=== PATIENT | male | born 1955 | race Caucasian/White ===

== ENCOUNTER 2020-06-05 13:33 | Inpatient (IN) | payer OTHER ==
[~2020-06-05] VITALS: Ht 185.4 cm; Wt 74.8 kg
[2020-06-05] MEDS ORDERED: MAGNESIUM HYDROXIDE 30 ML UDC PO PRN (20:00)
[2020-06-05] MEDS ORDERED: TEMAZEPAM 7.5 MG CAPSULE PO PRN (20:00)
[2020-06-05] MEDS ORDERED: MAG HYDROX/AL HYDROX/SIMETH 30 ML UDC PO PRN (20:00)
[2020-06-05] MEDS ORDERED: ACETAMINOPHEN 325 MG TABLET PO PRN (20:00)
[2020-06-05] MEDS ORDERED: LORAZEPAM 0.5 MG TABLET PO PRN (20:00)
[2020-06-05] MEDS ORDERED: BLOOD SUGAR DIAGNOSTIC 1 EACH STRIP IN ONE (20:00)
[2020-06-05 20:01] VITALS: BP 134/102
[2020-06-05] MEDS ORDERED: COLC0.6C3 PO (23:30)
[2020-06-05] MEDS ORDERED: FENO134C PO (23:30)
[2020-06-05] MEDS ORDERED: ALLO300T2 PO (23:30)
[2020-06-05] MEDS ORDERED: LISI10TA29 PO (23:30)
[2020-06-05 23:39] VITALS: BP 130/98
--- NOTE | 2020-06-05 23:59 | NUR ---
GPS ADMISSION NOTES: RECEIVED PATIENT FROM [facility]. PATIENT ARRIVED ON THIS UNIT VIA W/C. PATIENT IS ON A 5150 HOLD FOR DTS. HOLD WAS PLACED ON 06/04/20 AT 1343. PER HOLD PATIENT PRESENTED HIMSELF TO [facility] DUE TO SI AND DESIRE TO WITH PLANS TO SHOOT HIMSELF WITH HIS GUN. PATIENT WAS SAD, DEPRESSED, LABILE AND UNABLE TO ENGAGE OR PARTICIPATE IN MEANINGFUL SAFETY PLAN DUE TO MENTAL DISORDER. UPON FACE TO FACE EVALUATION, PATIENT IS A/O X4, WELL GROOMED, APPROPRIATE AFFECT, CALM AND COOPERATIVE. DENIES SI AT THIS TIME. PER PATIENT HE IS HAVING MARITAL ISSUES WITH HIS SO HE LEFT HOME AND LIVED WITH HIS GIRLFRIEND BUT RECENTLY RETURNED HOME TO WORK ON HIS MARRIAGE WITH HIS . PER PATIENT HE GOT TIRED OF HER YELLING AND SCREAMING AT HIM AND, "HAD THIS STUPID IDEA TO KILL MYSELF, I WAS STUPID". PATIENT IS CURRENTLY SLEEPING, HAS NO S/S OF OF DISTRESS, NO C/O PAIN. BREATHING IS EVEN AND UNLABORED WITH EQUAL RISE AND FALL OF THE CHEST ON ROOM AIR. PATIENT SIGNED ALL ADMISSION PAPERWORK. SKIN ASSESSMENT DONE/SKIN IS CLEAR, MRSA SWAP DONE, [id number]. PATIENT BELONGINGS WERE INVENTORIED AND CONTRABAND SENT TOO SUPERVISORS SAFE, PATIENT IS FULL CODE AND NKA. IMMUNIZATION QUESTIONNAIRES COMPLETED, PATIENT REFUSED FLU SHORT AND PNA VACCINATION. PATIENT ADVISED OF HIS HOLD AND PATIENT RIGHTS BOOKLET GIVEN. PATIENT IS UNDER THE PSYCHIATRIC CARE OF DR. ANTUNEZ AND MEDICAL CARE OF DR. SINGH. PATIENT ORIENTED TO ROOM, FLOOR AND STAFF WITH ALL PATIENT QUESTIONS ANSWERED. PATIENT EDUCATED ON THE USE OF CALL MOSES. PATIENT BED IS LOCKED, LOW AND RAILS UP X2. Q15 SAFETY ROUND INITIATED. WILL CONTINUE TO MONITOR PATIENT FOR SAFETY, MOOD AND BEHAVIOR.
[2020-06-06 07:26] LABS: ALBUMIN 3.4 g/dL (3.4-5.0); BILIRUBIN,TOTAL 0.3 mg/dL (0.2-1.0); CALCIUM, SERUM 9.6 mg/dL (8.5-10.1); CREATININE 1.4 mg/dL (0.6-1.3); POTASSIUM 4.2 mmol/L (3.5-5.1); TOTAL PROTEIN, SERUM 6.8 g/dL (6.4-8.2)
[2020-06-06 08:00] VITALS: BP 156/93
[2020-06-06] MEDS: LISINOPRIL (10MG) 10 MG TABLET PO SCH (08:50)
[2020-06-06] MEDS: ALLOPURINOL 100 MG TABLET PO SCH (08:50)
--- NOTE | 2020-06-06 09:00 | NUR ---
RN NOTE- PT IS ALERT ORIENTED TO PERSON PLACE TIME PURPOSE DENIES SI HI AH VH MAKES NEEDS KNOWN AFFECT APPROPRIATE MED COMPLIANT PO INTAKE GOOD QUIET RESERVED
[2020-06-06] MEDS: Fenofibrate 48 MG TABLET PO SCH (09:23)
--- NOTE | 2020-06-06 11:05 | NUR ---
Family Contact: SW called the pts , Judy ([phone]), and was unable to make contact at this time. HOANG left a voicemail stating that the SW would like to discuss the pts discharge plan.
--- NOTE | 2020-06-06 11:43 | NUR ---
Initial Discharge Plan: Pt currently resides at his home located at [address] [place] [address] [place], [place] [id number]; ([phone]), with his , Judy ([phone]). Per pt, he would like to return to his home. HOANG will work with the pt and the MD regarding appropriate discharge planning. SW will form a safe and proper discharge.
--- NOTE | 2020-06-06 12:36 | NUR ---
Substance Abuse Intervention: SW conducted a substance abuse intervention with the pt due to his cannabis use.
[2020-06-06 16:00] VITALS: BP 130/66
[2020-06-06 20:30] VITALS: BP 131/78
[2020-06-07 08:00] VITALS: BP 114/77
[2020-06-07] MEDS: ALLOPURINOL 100 MG TABLET PO SCH (08:22)
[2020-06-07] MEDS: Fenofibrate 48 MG TABLET PO SCH (08:22)
[2020-06-07] MEDS: LISINOPRIL (10MG) 10 MG TABLET PO SCH (08:22)
[2020-06-07] MEDS: SERTRALINE HCL 50 MG TABLET PO SCH (08:23)
--- NOTE | 2020-06-07 08:31 | NUR ---
UR Note: SW received a call from [facility] trimming caser, Handy ([phone]), who stated that if a review will be necessary on Saturday then it would have to be live or via voicemail message and not faxed.
--- NOTE | 2020-06-07 09:00 | NUR ---
RN NOTE- REMAINS UNCHANGED. PT IS ALERT ORIENTED TO PERSON PLACE TIME PURPOSE DENIES SI HI AH VH MAKES NEEDS KNOWN AFFECT APPROPRIATE MED COMPLIANT PO INTAKE GOOD QUIET RESERVED
[2020-06-07 16:00] VITALS: BP 128/89
[2020-06-08 03:43] VITALS: BP 147/92
[2020-06-08 04:25] VITALS: BP 147/92
[2020-06-08 08:00] VITALS: BP 136/81
[2020-06-08] MEDS: ALLOPURINOL 100 MG TABLET PO SCH (09:24)
[2020-06-08] MEDS: Fenofibrate 48 MG TABLET PO SCH (09:24)
[2020-06-08] MEDS: SERTRALINE HCL 50 MG TABLET PO SCH (09:25)
[2020-06-08] MEDS: LISINOPRIL (10MG) 10 MG TABLET PO SCH (09:25)
[2020-06-08 16:00] VITALS: BP 116/74
--- NOTE | 2020-06-08 16:30 | NUR ---
QUIET,ISOLATIVE,KEEPING TO SELF MOST OF THE DAY.
[2020-06-08 20:53] VITALS: BP 137/84
[2020-06-09 06:58] LABS: CALCIUM, SERUM 8.9 mg/dL (8.5-10.1); CREATININE 1.3 mg/dL (0.6-1.3); POTASSIUM 4.7 mmol/L (3.5-5.1)
[2020-06-09 08:00] VITALS: BP 126/75
[2020-06-09] MEDS: Fenofibrate 48 MG TABLET PO SCH (08:07)
[2020-06-09] MEDS: LISINOPRIL (10MG) 10 MG TABLET PO SCH (08:07)
[2020-06-09] MEDS: ALLOPURINOL 100 MG TABLET PO SCH (08:07)
[2020-06-09] MEDS: SERTRALINE HCL 50 MG TABLET PO SCH (08:10)
--- NOTE | 2020-06-09 09:21 | NUR ---
Family Contact: SW called the pts , Judy ([phone]), and was unable to make contact at this time. HOANG left a voicemail stating that the SW would like to discuss the pts discharge plan.
--- NOTE | 2020-06-09 11:13 | NUR ---
After Dr. Child spoke to pt., he signed voluntary.
--- NOTE | 2020-06-09 11:21 | NUR ---
Individual Intervention: SW met with the pt in the hallway and discussed the pts voluntary status. SW also informed him that he will be discharged from the hospital tomorrow and that the SW will call the county and arrange his transportation. Pt states that he has the keys to his house and he spoke to his about returning home so she will be expecting him.
--- NOTE | 2020-06-09 14:15 | NUR ---
[facility] Transportation Contact: HOANG called Nilda ([phone]) at the [facility] department to set up transportation for the pts discharge. Nilda scheduled the ride for 1pm the following day.
[2020-06-09 16:00] VITALS: BP 125/79
[2020-06-09 20:14] VITALS: BP 131/78
--- NOTE | 2020-06-09 22:09 | NUR ---
NURSES NOTES: ASSESSED PATIENT FOR ANY SUICIDAL THOUGHTS, PLANS OR IDEATION- PATIENT DENIES. PATIENT IS ACTUALLY LOOKING FORWARD TO GOING HOME THE NEXT MORNING. WILL CLOSELY MONITOR PATIENT.
--- NOTE | 2020-06-10 00:30 | NUR ---
NURSES NOTES: BERNARDO VAZQUEZ NP MADE AWARE OF PATIENT'S GOUT FLARE UP ON RIGHT ANKLE. RECEIVED AN ORDER OF COLCHICINE LOADING DOSE OF 1.2 MG PO THEN ANOTHER 0.6 MG DOSE AN HOUR AFTER. ORDER NOTED AND CARRIED OUT. WILL MONITOR EFFICACY OF MEDICATION.
[2020-06-10] MEDS ORDERED: COLCHICINE 0.6 MG TABLET PO ONE ×2 (01:00→02:00)
[2020-06-10 07:03] LABS: CALCIUM, SERUM 9.3 mg/dL (8.5-10.1); CREATININE 1.3 mg/dL (0.6-1.3); POTASSIUM 4.6 mmol/L (3.5-5.1)
[2020-06-10] MEDS: Fenofibrate 48 MG TABLET PO SCH (08:13)
[2020-06-10] MEDS: SERTRALINE HCL 50 MG TABLET PO SCH (08:13)
[2020-06-10] MEDS: ALLOPURINOL 100 MG TABLET PO SCH ×2 (08:13→08:21)
[2020-06-10] MEDS: LISINOPRIL (10MG) 10 MG TABLET PO SCH (08:14)
[2020-06-10 08:38] VITALS: BP 113/66
--- NOTE | 2020-06-10 08:57 | NUR ---
UR Note: SW called [facility] r[facility] case mgr, Handy ([phone]), and left a voicemail that informed her that the pt will be discharged today and that the SW needs assistance in securing psychiatrist aftercare appointments.
--- NOTE | 2020-06-10 09:00 | NUR ---
RN NOTE- PT ALERT ORIENTED TO PERSON PLACE TIME PURPOSE. NEEDS ATTENDED. DENIES ALL PO INTAKE GOOD FOR DC TODAY Addendum: 06/10/20 at [address] RN [address] Hunter made aware of the discharge and reconciled the meds.
[2020-06-10] MEDS ORDERED: COLCHICINE 0.6 MG TABLET PO STA (10:24)
--- NOTE | 2020-06-10 10:31 | NUR ---
RN NOTE- PT W GOUT PAIN. REFUSED ALLOPURINOL THIS MORNING HAD COLCHICINE LAST NOC. DR BECKMAN ORDERED COLCHICINE 0.6 MG GIVEN X ONE DOSE NOW
--- NOTE | 2020-06-10 11:39 | NUR ---
Discharge Note: Pt will be discharged back to his home located at [address] [place] [address]. Pt will be picked up by the [facility] transport at 1PM. Pt states that he has keys to his house and that he has informed his . Upon discharge, the pt appears to be alert and oriented x4 (time, place, self and situation). Pt appears to be in a euthymic mood and presents with a calm mood. Pt denies both suicidal and homicidal ideation as well as auditory and visual hallucinations. Pt appears to be ambulatory with a steady gait. Pt appears to be well groomed and appropriately dressed. Pt was provided with a two page list of psychiatrist referrals to which the pt stated that he will call and make an appointment once he figures out his work schedule after he returns to work this weekend. SW placed a copy of those referrals in the pts chart. Pt has also been referred to the [facility] located at [address] [place] [address]; for psychiatric assistance. Pt will also follow up with his management psychologist, Dr. Richards, located at [address] [place] [address]; . The multidisciplinary exit care form were done, printed, signed, and given to the patient.
--- NOTE | 2020-06-10 12:00 | NUR ---
PRODUCTION REPRODUCTION MANAGER NOTE- PT DC HOME AT THIS TIME VIA VAN TO HIS PRIMARY RESIDENCE. PT IS ALERT ORIENTED TO PERSON PLACE TIME AND PURPOSE. VS STABLE. DENIES SI HI AH VH CALM DIRECTABLE SKIN INTACT . PO INTAKE GOOD, MED COMPLIANT. DC INSTRUCTIONS AND RX REVIEWED W PT. VERBALIZED UNDERSTANDING. ID WRISTBAND REMOVED. ESCORTED OFF UNIT BY THIS RN.
--- NOTE | 2020-06-10 15:08 | NUR ---
UR Note: HOANG called [facility] manager of case management, Handy ([phone]), and conducted a live discharge clinical for the pt.
== END 2020-06-10 12:00 | disposition home or self-care (01) | DRG 881 ==
LOC: GPS 19:17
PROVIDERS: ADMIT Psychiatry & Neurology Psychiatry; ATTEND Family Medicine
DX: F32.9 Major depressive disorder, single episode, unspecified (principal); N18.9 Chronic kidney disease, unspecified; N17.0 Acute kidney failure with tubular necrosis; R45.851 Suicidal ideations; F29 Unspecified psychosis not due to a substance or known physiological condition; F41.9 Anxiety disorder, unspecified; E11.9 Type 2 diabetes mellitus without complications; E78.5 Hyperlipidemia, unspecified; M10.9 Gout, unspecified; I12.9 Hypertensive chronic kidney disease with stage 1 through stage 4 chronic kidney disease, or unspecified chronic kidney disease
CPT/HCPCS: 36415; 80048-TC; 80053-TC; 80061-TC; 82962-TC; 87081-TC